=== PATIENT | male | born 1970 | race African-American/Black ===

== ENCOUNTER 2022-10-04 10:46 | Outpatient (REF) | payer MEDICAID, SELFPAY ==
[2022-10-04 13:58] LABS: Cholesterol 160 mg/dL; HDL Cholesterol 72 mg/dL; LDL Cholesterol Calculated 72 mg/dl; Triglycerides 81 mg/dL
[2022-10-04 14:15] LABS: Alanine Aminotransferase 26 U/L (0-40); Albumin Level 4.3 g/dL (3.5-5.0); Alkaline Phosphatase 58 U/L (39-117); Anion Gap 12 (12-20); Aspartate Amino Transferase 20 U/L (5-37); Blood Urea Nitrogen 13 mg/dL (9-16); Calcium 9.8 mg/dL (8.4-10.2); Carbon Dioxide 26 mmol/L (22-29); Chloride 109 mmol/L (96-108); Estimated Glomerular Filt Rate > 60; Glucose Random 93 mg/dL (60-115); Potassium 4.5 mmol/L (3.3-5.1); Sodium 142 mmol/L (135-145)
[2022-10-04 14:52] LABS: Reflex LDLD? No
[2022-10-04 15:01] LABS: Free T4 (Free Thyroxine) 0.78 ng/dL (0.71-1.85)
[2022-10-04 15:24] LABS: CT PCR NOT DETECTED (Not Detect.); NG PCR NOT DETECTED (Not Detect.)
[2022-10-05 04:14] LABS: Syphilis Screen Nonreactive (Nonreactive)
[2022-10-05 04:20] LABS: HBS Num1 1.57 mIU/mL (0-7.99); HBsAGNum1 0.39 S/CO (0.00-0.99); HIV AB/AG Nonreactive (Nonreactive); HIV Num 1 0.05 S/CO (0.00-0.99); Hepatitis B Surface Antigen Negative (Negative); ~Hepatitis B Surface Antibody NONREACTIVE (Nonreactive)
[2022-10-05 04:24] LABS: ~HepC Num1 0.23 S/CO (0.00-0.79); ~Hepatitis C Antibody Nonreactive (Nonreactive)
== END 2022-10-04 10:47 | disposition home or self-care (01) ==
LOC: HO.HHCL 10:46
PROVIDERS: Visit Provider Family Medicine
DX: Z01.84 Encounter for antibody response examination (principal); Z11.3 Encounter for screening for infections with a predominantly sexual mode of transmission; Z11.4 Encounter for screening for human immunodeficiency virus [HIV]; R00.0 Tachycardia, unspecified; F17.200 Nicotine dependence, unspecified, uncomplicated
CPT/HCPCS: 0353U; 80053; 80061; 84439; 84443; 86706; 86780; 86803; 87340; 87389